=== PATIENT | male | born 1950 | race Caucasian/White ===

== ENCOUNTER 2020-06-02 21:10 | Emergency (ER) | payer MEDICARE, BC ==
[2020-06-02 21:18] VITALS: RESP 19; TEMP 98.9
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
[2020-06-02] MEDS ORDERED: LIDOCAINE 1%-EPI 1:100,000 20 ML VIAL SQ ONE (22:24)
[2020-06-02] MEDS ORDERED: ACET/COD 300 MG/30 MG STARTER PACK 6 TAB BTL PO STA (22:40)
[2020-06-02 23:07] VITALS: BP 138/64; PULSE 78
== END 2020-06-02 23:07 | disposition home or self-care (01) ==
LOC: EC 21:10
DX: S02.401B Maxillary fracture, unspecified side, initial encounter for open fracture (principal); W22.8XXA Striking against or struck by other objects, initial encounter; Y93.89 Activity, other specified
CPT/HCPCS: 12013; 64400; 99283

== ENCOUNTER → 2020-09-15 | Day surgery (SDC) | payer MEDICARE, BC ==
[2020-09-13 10:01] VITALS: BMI 26.4
[~2020-09-15] MED LIST: ALPRAZolam 0.25 MG TAB PO PRN; ALPRAZolam 0.5 MG TAB PO PRN; ASPIRIN 325 MG TAB PO STA; ATORVASTATIN 80 MG TAB PO STA; NITROGLYCERIN SL TABS 0.4 MG TAB SUBLINGUAL PRN; SODIUM CHLORIDE 0.9% 1,000 ML IV ONE; SODIUM CHLORIDE 0.9% 1,000 ML in EMPTY BAG 1 BAG IV ONE
[2020-09-15 09:41] VITALS: BP 194/88; PULSE 89; RESP 16; TEMP 97.9
[2020-09-15 09:57] LABS: Basophils % (A) 0 %; Eosinophils # (A) 0.1 k/uL (0-0.7); Eosinophils % (A) 2 %; HCT 23.7 % (39.0-53.0); Lymphocytes # (A) 1.1 k/uL (1.0-4.8); Lymphocytes % (A) 20 %; MCH 30.5 pg (25.0-35.0); MCV 89.6 fL (80.0-100.0); Monocytes # (A) 0.3 k/uL (0-1.0); Monocytes % (A) 6 %; Neutrophils # (A) 3.8 k/uL (1.3-7.7); Neutrophils % (A) 70 %; Platelet Count 133 k/uL (150-450); RBC 2.64 m/uL (4.30-5.90); RDW 13.2 % (11.5-15.5); WBC 5.4 k/uL (3.8-10.6)
[2020-09-15 10:01] LABS: African American GFR (CKD) >90 (>60 ml/min/1.73 sqM); Anion Gap 2 mmol/L; Blood Urea Nitrogen 9 mg/dL (9-20); Carbon Dioxide 17 mmol/L (22-30); Chloride 121 mmol/L (98-107); Glucose 58 mg/dL (74-99); Non-African American GFR(CKD) >90 (>60 ml/min/1.73 sqM); Sodium 140 mmol/L (137-145)
[2020-09-15 10:27] LABS: Calcium 4.9 mg/dL (8.4-10.2); Potassium 2.3 mmol/L (3.5-5.1)
[2020-09-15] MEDS: POTASSIUM CHLORIDE 10 MEQ in WATER FOR INJECTION 1 100ML.BAG IVPB SCH ×6 (11:00→16:00)
[2020-09-15] MEDS: MAGNESIUM SULFATE-D5W PMX 1 GM in DEXTROSE/WATER 1 100ML.BAG IVPB SCH ×2 (16:17→17:17)
== END ==
LOC: CATHCVL 09:04
PROVIDERS: ATTEND Internal Medicine Interventional Cardiology
DX: I34.0 Nonrheumatic mitral (valve) insufficiency (principal); F10.10 Alcohol abuse, uncomplicated; Z53.9 Procedure and treatment not carried out, unspecified reason; Z79.82 Long term (current) use of aspirin
CPT/HCPCS: 80048; 83735; 85025; J3475; J3480

== ENCOUNTER 2021-08-31 10:39 | Day surgery (SDC) | payer MEDICARE, BC ==
[2021-08-29 15:43] VITALS: BMI 24.0
[~2021-08-31 10:39] MED LIST changes: +HEPARIN SODIUM,PORCINE 10,000 UNIT in SODIUM CHLORIDE 0.9% 1,000 ML IRRIGATION PRN; +HEPARIN SODIUM,PORCINE 2,500 UNIT in SODIUM CHLORIDE 0.9% 250 ML IRRIGATION PRN; -SODIUM CHLORIDE 0.9% 1,000 ML IV ONE; -SODIUM CHLORIDE 0.9% 1,000 ML in EMPTY BAG 1 BAG IV ONE; +SODIUM CHLORIDE 0.9% 1,000 ML in EMPTY BAG 1 BAG IV SCH
[2021-08-31] MEDS ORDERED: SODIUM CHLORIDE 0.9% 1,000 ML IV ONE (11:07)
[2021-08-31] MEDS ORDERED: fentaNYL (PF) 50 MCG/ML 2 ML AMP ONE (12:40)
[2021-08-31] MEDS ORDERED: BENZOCAINE SPRAY 1 CAN TOPICAL ONE (12:50)
[2021-08-31] MEDS ORDERED: LIDOCAINE 1% INJ 10MG/ML (20 ML MDV) ONE (12:57)
[2021-08-31] MEDS: MIDAZOLAM 2 MG/2 ML VIAL IV ONE ×2 (12:57→13:00)
[2021-08-31] MEDS ORDERED: HEPARIN SODIUM 1,000 UN/ML (10ML VL) ONE (12:58)
[2021-08-31] MEDS ORDERED: VERAPAMIL 2.5 MG/ML 2 ML AMP ONE (12:58)
[2021-08-31] MEDS ORDERED: LIDOCAINE 1% INJ 10MG/ML (20 ML MDV) SQ ONE (13:32)
[2021-08-31] MEDS ORDERED: VERAPAMIL SYRINGE (5 MG/10 ML) INTRAARTER ONE (13:33)
[2021-08-31] MEDS ORDERED: HEPARIN SODIUM 1,000 UN/ML (10ML VL) IV ONE (13:36)
[2021-08-31] MEDS ORDERED: IV FLUID CONTINUATION 850 ML IV ONE (13:43)
[2021-08-31] MEDS ORDERED: IOPAMIDOL-370 100ML BTL INJ ONE ×2 (13:44)
[2021-08-31] MEDS ORDERED: IOPAMIDOL-370 125ML BTL INJ ONE (13:44)
[2021-08-31] MEDS ORDERED: RX INFO: IV CONTRAST WAS GIVEN 1 EACH MISC MISCELLANE PRN (13:52)
--- NOTE | 2021-08-31 13:55 | P.PCN ---
Date of Procedure: 08/31/21 Operative Findings: TRANSESOPHAGEAL ECHOCARDIOGRAM SALES ADMINISTRATION MANAGER: GÓMEZ PETERSEN MD, RPVI INDICATION: Mitral regurgitation SEDATION: Conscious sedation COMPLICATION: None LEVEL OF SEDATION Moderate with a sedation in length of 12 minutes PROCEDURE DESCRIPTION: After obtaining an informed consent, the patient was brought to transesophageal echocardiogram room. Pulse oximetry and heart monitors were attached to the patient. The patient throat was sprayed using lidocaine. The patient was turned into left lateral position. After that a bite guard was placed. After an appropriate conscious sedation was initiated, the transesophageal echocardiogram was advanced through a bite guard into the mid esophagus. A 2-D echocardiogram images, color Doppler images, continuous wave images, pulse-wave images, of various cardiac structure were performed. After that the transesophageal echocardiogram probe was advanced into the stomach and fixed to obtain transgastric view was. The probe was brought into the mid esophagus. Inter-atrial septum was interrogated using 2D images, color Doppler images, and then contrast study. After that transesophageal echocardiogram was withdrawn out and upon withdrawing the descending thoracic aorta all the way up to the arch was evaluated. FINDING: The left ventricle dimension and systolic function appeared to be within normal limits. Ejection fraction appeared to be in the range of 60%. Right ventricle appeared to be of normal size and function. The left atrium appears to be dilated. The left atrial appendage appeared to be free from any thrombus. The interatrial septum appeared to be intact without any shunting. The aortic valve is trileaflet valve without stenosis or regurgitation. The mitral valve seems to be abnormal. There is evidence off prolapsing/flailing of the posterior mitral leaflet with evidence off wide open mitral regurgitation with an anteriorly directed jet. The tricuspid valve appears to have evidence of moderate tricuspid regurgitation. No evidence of pericardial effusion identified. CONCLUSION: 1. Prolapsing of the posterior mitral leaflet with evidence of severe mitral regurgitation with an eccentric jet directed anteriorly 2. Normal left ventricular dimension and systolic function with ejection fraction is at least 60% 3. And normal right ventricular dimension and systolic function 4. Dilated left atrium. Intact left atrial appendage. Intact interatrial septum 5. Moderate tricuspid regurgitation identified 6. No evidence of pericardial effusion seen.
[2021-08-31] MEDS ORDERED: SODIUM CHLORIDE 0.9% 1,000 ML IV SCH (14:00)
--- NOTE | 2021-08-31 14:00 | P.PCN ---
Date of Procedure: 08/31/21 Operative Findings: CARDIAC CATHETERIZATION PERFORMING PHYSICIAN: Henrry Castano MD, RPVI PROCEDURE PERFORMED: 1. Selective right and left coronary angiogram 2. Left heart catheterization 3. Left ventriculography INDICATION: Severe mitral regurgitation COMPLICATION: None APPROACH: Right radial artery LEVEL OF SEDATION: Moderate with a sedation length of gentleman PROCEDURE DESCRIPTION: After obtaining an informed consent, the patient was brought to cardiac lab analyst. Local anesthesia was performed using lidocaine subcutaneously. The right radial artery was cannulated using Seldinger technique, the guidewire passed easily, following that we advanced a 5-[place] sheath dilator assembly, the wire and dilator were removed and sheath was flushed. Following that, 2 mg of verapamil along with 5000 unit heparin were given. Selective right and left coronary angiogram using a 6-[place] JR4 and JL 3.5 catheters. Following that we did left heart catheterization using 6-[place] pigtail catheter. After that I did LV gram The procedure was completed there was no complication. SELECTIVE CORONARY ANGIOGRAM: The right coronary artery: To moderate caliber vessel and nondominant vessel. Its angiographically normal. Left main: It is angiographically normal. Bifurcates into LCx and LAD. The left circumflex: The LCx is a large caliber vessel and a dominant vessel. The proximal LCx is angiographically normal and gives rise into the first OM branch which appeared to be angiographically normal. The left circumflex distally is angiographically normal and gives rises into second OM branch which appeared to be angiographically normal. The circumflex distally after that bifurcates into PDA and PLV branches both appeared to be angiographically normal. The left anterior descending artery: Is a large caliber vessel. The LAD is angiographically normal. In the midportion gives rise into a large diagonal branch which seems to be angiographically normal. HEMODYNAMICS: The LVEDP was only 8 mmHg without significant gradient across aortic valve The LV gram: Was performed in the RAMOS projection and using a power injection. The LV systolic function appeared to be within normal limits with EF around 60% with 4+ mitral regurgitation CONCLUSION: 1. Normal coronary angiogram 2. Normal left-sided filling pressure 3. Normal left ventricular systolic function 4. 4+ mitral regurgitation POSTPROCEDURE MANAGEMENT: The patient to be referred for mitral valve repair/replacement
[2021-08-31 14:18] VITALS: RESP 16
[2021-08-31 17:58] VITALS: BP 124/60; PULSE 65
== END 2021-08-31 18:09 | disposition home or self-care (01) ==
LOC: CATHCVL 10:39
PROVIDERS: ATTEND Internal Medicine Interventional Cardiology
DX: I08.1 Rheumatic disorders of both mitral and tricuspid valves (principal); F10.10 Alcohol abuse, uncomplicated; Z20.822 Contact with and (suspected) exposure to COVID-19; Z79.82 Long term (current) use of aspirin; Z79.899 Other long term (current) drug therapy
CPT/HCPCS: 93312; 93320; 93325; 93460; 87635; C1894; J2250; J2001; J1644; Q9967 ×2